=== PATIENT | male | born 1950 | race Caucasian/White ===

== ENCOUNTER 2024-11-28 12:03 | Inpatient (IN) | payer OTHER, MEDICARE, BC ==
[2024-11-28] MEDS ORDERED: Sodium Chloride 0.9% 10 ML Syringe FLUSH PRN ×2 (12:07→13:01)
[2024-11-28 12:21] LABS: BASOPHILS ABSOLUTE AUTO 0.0 K/mm3 (0.0-0.2); BASOPHILS PERCENT AUTO 0.3 % (0.0-1.0); EOSINOPHILS ABSOLUTE AUTO 0.4 K/mm3 (0.0-0.4); EOSINOPHILS PERCENT AUTO 3.2 % (0.0-6.0); IMMATURE GRAN ABSOLUTE AUTO 0.10 K/mm3 (0.00-0.05); IMMATURE GRAN PERCENT AUTO 0.9 % (0.0-0.4); LYMPHOCYTES ABSOLUTE AUTO 2.3 K/mm3 (1.0-4.8); LYMPHOCYTES PERCENT AUTO 20.4 % (24.0-44.0); MEAN PLATELET VOLUME 10.0 fl (9.4-12.4); MONOCYTES ABSOLUTE AUTO 0.8 K/mm3 (0.0-0.8); MONOCYTES PERCENT AUTO 6.9 % (0.0-8.0); NEUTROPHILS ABSOLUTE AUTO 7.7 K/mm3 (1.8-7.7); NEUTROPHILS PERCENT AUTO 68.3 % (41.0-71.0); NRBC ABSOLUTE 0.00 (0.00-0.02); NRBC PERCENT 0.0 % (0.0-0.2); PLATELET COUNT,PLT 191 K/mm3 (150-400); RED BLOOD CELL COUNT 4.36 M/mm3 (4.52-5.90); WHITE BLOOD CELL COUNT,WBC 11.24 K/mm3 (3.9-11.3)
[2024-11-28 12:39] LABS: A/G RATIO 1.0 (1-2); ALANINE AMINOTRANSFERASE,ALT 30.0 U/L (16-63); ASPARTATE AMNIOTRANSFERASE,AST 23.0 U/L (15-37); BILIRUBIN TOTAL 0.7 mg/dL (0.2-1.0); BLOOD UREA NITROGEN,BUN 19.0 mg/dL (7-18); CARBON DIOXIDE,CO2 26.0 mEq/L (21-32); CHLORIDE,CL 107.0 mEq/L (98-107); CREATININE 0.8 mg/dL (0.7-1.3); EST CRCL DRUG DOSING (CG) 91.61 mL/min; ESTIMATED GFR 94.0 mL/min (>60); GLUCOSE RANDOM 102.0 mg/dL (70-99); POTASSIUM,K 4.4 mEq/L (3.5-5.1); PROTEIN TOTAL,TP 6.9 g/dl (6.4-8.2); SODIUM,NA 139.0 mEq/L (136-145)
[2024-11-28] MEDS: Iopamidol 755 Mg/ML 100 ML Bottle IVPUSH ONE (13:27)
[2024-11-28] MEDS: Sodium Chloride 0.9% 10 ML Syringe FLUSH PRN (13:27)
[2024-11-28 14:44] LABS: APPEARANCE,URINE CLEAR (Clear); GLUCOSE,URINE NEGATIVE (Negative); OCCULT BLOOD,URINE 1+ (Negative)
[2024-11-28 15:15] LABS: EPITHELIAL CELLS,URINE 0-5 /hpf (0-5)
[2024-11-28] MEDS ORDERED: Ondansetron 4 MG/2 ML SDV IV PRN (16:41)
[2024-11-28] MEDS: Iopamidol 612 MG/ML 100 ML Bottle IVPUSH ONE (18:51)
[2024-11-29 04:43] LABS: MEAN PLATELET VOLUME 10.0 fl (9.4-12.4); NRBC ABSOLUTE 0.00 (0.00-0.02); NRBC PERCENT 0.0 % (0.0-0.2); PLATELET COUNT,PLT 174 K/mm3 (150-400); RED BLOOD CELL COUNT 4.36 M/mm3 (4.52-5.90); WHITE BLOOD CELL COUNT,WBC 11.18 K/mm3 (3.9-11.3)
[2024-11-29 05:15] LABS: A/G RATIO 1.0 (1-2); ALANINE AMINOTRANSFERASE,ALT 27.0 U/L (16-63); ASPARTATE AMNIOTRANSFERASE,AST 17.0 U/L (15-37); BILIRUBIN TOTAL 1.1 mg/dL (0.2-1.0); BLOOD UREA NITROGEN,BUN 13.0 mg/dL (7-18); CARBON DIOXIDE,CO2 29.0 mEq/L (21-32); CHLORIDE,CL 103.0 mEq/L (98-107); CREATININE 0.9 mg/dL (0.7-1.3); EST CRCL DRUG DOSING (CG) 62.12 mL/min; ESTIMATED GFR 91.0 mL/min (>60); GLUCOSE RANDOM 114.0 mg/dL (70-99); POTASSIUM,K 3.6 mEq/L (3.5-5.1); PROTEIN TOTAL,TP 6.9 g/dl (6.4-8.2); SODIUM,NA 140.0 mEq/L (136-145)
[2024-11-29] MEDS: Timolol Maleate 0.5% Ophth Soln 5 ML Bottle EYELF SCH ×2 (08:47→20:07)
[2024-11-29] MEDS: buPROPion 150 MG Tab.ER PO SCH (08:47)
[2024-11-30 04:53] LABS: MEAN PLATELET VOLUME 10.3 fl (9.4-12.4); NRBC ABSOLUTE 0.00 (0.00-0.02); NRBC PERCENT 0.0 % (0.0-0.2); PLATELET COUNT,PLT 174 K/mm3 (150-400); RED BLOOD CELL COUNT 4.37 M/mm3 (4.52-5.90); WHITE BLOOD CELL COUNT,WBC 10.92 K/mm3 (3.9-11.3)
[2024-11-30 05:30] LABS: A/G RATIO 0.9 (1-2); ALANINE AMINOTRANSFERASE,ALT 29.0 U/L (16-63); ASPARTATE AMNIOTRANSFERASE,AST 18.0 U/L (15-37); BILIRUBIN TOTAL 1.3 mg/dL (0.2-1.0); BLOOD UREA NITROGEN,BUN 15.0 mg/dL (7-18); CARBON DIOXIDE,CO2 27.0 mEq/L (21-32); CHLORIDE,CL 106.0 mEq/L (98-107); CREATININE 0.8 mg/dL (0.7-1.3); EST CRCL DRUG DOSING (CG) 69.89 mL/min; ESTIMATED GFR 94.0 mL/min (>60); GLUCOSE RANDOM 115.0 mg/dL (70-99); POTASSIUM,K 4.3 mEq/L (3.5-5.1); PROTEIN TOTAL,TP 7.0 g/dl (6.4-8.2); SODIUM,NA 140.0 mEq/L (136-145)
[2024-12-03] MEDS: Timolol Maleate 0.5% Ophth Soln 5 ML Bottle EYELF SCH (08:40)
[2024-12-04 12:46] LABS: A/G RATIO 0.8 (1-2); ALANINE AMINOTRANSFERASE,ALT 68.0 U/L (16-63); ASPARTATE AMNIOTRANSFERASE,AST 32.0 U/L (15-37); BILIRUBIN TOTAL 0.7 mg/dL (0.2-1.0); BLOOD UREA NITROGEN,BUN 20.0 mg/dL (7-18); CARBON DIOXIDE,CO2 25.0 mEq/L (21-32); CHLORIDE,CL 103.0 mEq/L (98-107); CREATININE 0.7 mg/dL (0.7-1.3); EST CRCL DRUG DOSING (CG) 79.87 mL/min; ESTIMATED GFR 98.0 mL/min (>60); GLUCOSE RANDOM 117.0 mg/dL (70-99); POTASSIUM,K 4.5 mEq/L (3.5-5.1); PROTEIN TOTAL,TP 7.6 g/dl (6.4-8.2); SODIUM,NA 139.0 mEq/L (136-145); VITAMIN D,25-HYDROXY 31.5 ng/ml (30.0-100.0)
[2024-12-04] MEDS: Cholecalciferol (Vitamin D3) 5,000 UNIT Cap PO SCH (14:29)
== END 2024-12-06 10:05 | DRG 536 ==
LOC: JD.ED 12:03 → JD.MS 16:12
PROVIDERS: ADMIT Internal Medicine; ATTEND Family Medicine
DX: S32.512A Fracture of superior rim of left pubis, initial encounter for closed fracture (principal); S22.038A Other fracture of third thoracic vertebra, initial encounter for closed fracture; S22.048A Other fracture of fourth thoracic vertebra, initial encounter for closed fracture; S32.592A Other specified fracture of left pubis, initial encounter for closed fracture; S32.392A Other fracture of left ilium, initial encounter for closed fracture; E03.9 Hypothyroidism, unspecified; F41.9 Anxiety disorder, unspecified; S46.011A Strain of muscle(s) and tendon(s) of the rotator cuff of right shoulder, initial encounter; S46.211A Strain of muscle, fascia and tendon of other parts of biceps, right arm, initial encounter; V89.9XXA Person injured in unspecified vehicle accident, initial encounter; Z88.2 Allergy status to sulfonamides
CPT/HCPCS: 36415; 70450; 70450-26; 70496; 70496-26; 70498; 70498-26; 71046; 71046-26; 72125; 72125-26; 73030-26-RT; 73030-RT; 73221-26-RT; 73221-RT; 73502-26-LT; 73502-LT; 74177; 74177-26; 80053; 81001; 82306; 83690; 85018; 85025; 85027; 96374; 97110-GO; 97110-GP; 97116-GP; 97162-GP; 97165-GO; 97530-GO; 97530-GP; 97535-GO; 99284; 99285-25; A9270-GY; J1171; J1650; Q9967